=== PATIENT | female | born 1940 | race Caucasian/White ===

== ENCOUNTER 2018-08-22 22:28 | Emergency (ER) | payer OTHER ==
[2018-08-22 22:40] VITALS: BP 143/71; TEMP 99.9; BMI 36.3
[2018-08-22] MEDS ORDERED: DECADRON 4 MG/ML SDV IM STA (23:00)
[2018-08-22] MEDS ORDERED: TYLENOL PO STA (23:00)
--- NOTE | 2018-08-22 23:21 | ED.PDOC ---
General ED Provider: Dr. SHAHID RETANA Chief Complaint: Earache Stated Complaint: Patient is a 78 year old female who comes to the ER with left ear pain that started afew days ago, called PCP who prescribed Augmenting which she has been taking for the past few days. states that the pain is worse. Cannot take narcotics. Time Seen by Physician: 23:19 Mode of Arrival: Walk-In Information Source: Patient Exam Limitations: No limitations Primary Care Provider: ROSE PERERA Nursing and Triage Documentation Reviewed and Agree: Yes Does patient meet sepsis criteria?: No System Inflammatory Response Syndrome: Not Applicable Sepsis Protocol: For patient's 13 years and over: Temp is 96.8 and below OR 101 and greater Pulse >90 BPM Resp >20/minute Acutely Altered Mental Status Are patient's symptoms suggestive of a new infection, such as: -Pneumonia -Skin, Soft Tissue -Endocarditis -UTI -Bone, Joint Infection -Implantable Device -Acute Abdominal Infection -Wound Infection -Meningitis -Blood Stream Catheter Infection -Unknown Review of Systems - Review Of Systems Constitutional: Reports: No symptoms Eyes: Reports: No symptoms Ears, Nose, Mouth, Throat: Reports: Ear pain, Mouth pain Respiratory: Reports: No symptoms Cardiac: Reports: No symptoms GI: Reports: No symptoms : Reports: No symptoms Musculoskeletal: Reports: No symptoms Skin: Reports: No symptoms Neurological: Reports: No symptoms Endocrine: Reports: No symptoms Hematologic/Lymphatic: Reports: No symptoms All Other Systems: Reviewed and Negative Past Medical History - Past Medical History Previously Healthy: No Endocrine: Reports: DM 2, Dyslipidemia Cardiovascular: Reports: Hypertension Respiratory: Reports: None Hematological: Reports: Anemia Gastrointestinal: Reports: None Genitourinary: Reports: CKD Neuro/Psych: Reports: Anxiety Musculoskeletal: Reports: Arthritis Cancer: Reports: None Last Menstrual Period: menopausal - Surgical History General Surgical History: Reports: (x3), Cholecystectomy - Family History Family History: Reports: None - Social History Smoking Status: Former smoker Hx Substance Use: No Alcohol Screening: None - Immunizations Tetanus Shot up to Date: No (unsure) Physical Exam - Physical Exam Appearance: Ill-appearing Ill-appearing: Mild Pain Distress: Moderate Eyes: YAJAIRA, EOMI, Conjunctiva clear ENT: Ears normal, Nose normal, Oropharynx normal Neck: Supple Respiratory: Airway patent, Breath sounds clear, Breath sounds equal, Respirations nonlabored Cardiovascular: RRR, Pulses normal, No rub, No murmur GI/: Soft, Nontender, No masses, Bowel sounds normal, No Organomegaly Musculoskeletal: Normal strength, ROM intact, No edema, No calf tenderness Skin: Warm, Dry, Normal color Neurological: Sensation intact, Motor intact, Reflexes intact, Cranial nerves intact, Alert, Oriented Psychiatric: Anxious Critical Care Note - Critical Care Note Total Time (mins): 0 Course - Course Orders, Labs, Meds: Orders Category Date Time Status MOLECULAR GROUP A STREP Stat LAB 08/22/18 22:57 Ordered Acetaminophen [Tylenol] MEDS 08/22/18 23:00 Discontinued 1,000 mg PO ONCE STA Dexamethasone 4 mg/ml Inj [Decadron 4 mg/ml Sdv] MEDS 08/22/18 23:00 Discontinued 8 mg IM ONCE STA Medications Discontinued Medications Generic Name Dose Route Start Last Admin Trade Name Freq PRN Reason Stop Dose Admin Acetaminophen 1,000 mg 08/22/18 23:00 Tylenol PO 08/22/18 23:01 ONCE STA Dexamethasone Sodium Phosphate 8 mg 08/22/18 23:00 Decadron 4 Mg/Ml Sdv IM 08/22/18 23:01 ONCE STA Vital Signs: Temp Pulse Resp BP Pulse Ox 08/22/18 22:29 99.9 F H 84 20 143/71 H 95 Departure - Departure Time of Disposition: 23:22 Disposition: HOME SELF-CARE Discharge Problem: TMJ (temporomandibular joint syndrome) Instructions: Temporomandibular Disorder (ED) Condition: Stable Pt referred to PMD for follow-up: Yes IPMP verified?: No Additional Instructions: Follow up with PCP in 2 days continue taking Augmentin as prescribed take over the counter Tylenol as needed for pain Allergies/Adverse Reactions: Allergies hydrocodone Adverse Reaction (Verified 08/22/18 22:40) hydromorphone [From Dilaudid] Adverse Reaction (Verified 08/22/18 22:40) IV Pain Medication-unsure what kind Adverse Reaction (Uncoded 08/22/18 22:40) Home Medications: Ambulatory Orders Calcium Carb/Vitamin D3/Vit K1 [Citracal Soft Chew] 1 tab PO DAILY 04/14/14 Cholecalciferol (Vitamin D3) [Vitamin D-3] 2,000 unit PO DAILY 04/14/14 Linagliptin [Tradjenta] 5 mg PO DAILY 04/14/14 Lisinopril 20 mg PO BID 04/14/14 Gabapentin 300 mg PO TID 09/20/15 Nebivolol HCl [Bystolic] 10 mg PO DAILY 09/20/15 Ropinirole HCl [Requip] 0.5 mg PO DAILY 09/20/15 Amlodipine Besylate 10 mg PO DAILY 08/22/18 Amoxicillin/Potassium Clav [Augmentin 875-125 Tablet] 1 tab PO BID 08/22/18 Apixaban [Eliquis] 5 mg PO BID 08/22/18 Atorvastatin Calcium [Lipitor] 5 mg PO BEDTIME 08/22/18 Disposition Discussed With: Patient
== END 2018-08-22 23:50 | disposition home or self-care (01) ==
LOC: ED 22:28
DX: H92.02 Otalgia, left ear (principal); K13.79 Other lesions of oral mucosa; M26.609 Unspecified temporomandibular joint disorder, unspecified side
CPT/HCPCS: 87651; 96372; 99283

== ENCOUNTER 2020-07-11 10:02 | Inpatient (IN) ==
[2020-07-11] MEDS ORDERED: SODIUM CHLORIDE 1,000 ML IV STA (10:19)
--- NOTE | 2020-07-11 10:35 | ED.PDOC ---
General ED Provider: Dr. YADY AWAD MD Chief Complaint: Dizziness Stated Complaint: persistent dizziness x several days. pt is [place] virus + and has 3 more days of quarantine remaining. Time Seen by Provider: 07/11/20 10:05 Mode of Arrival: Ambulance Information Source: Patient and EMT Exam Limitations: No limitations Primary Care Provider: ROSE PERERA Nursing and Triage Documentation Reviewed and Agree: Yes Does patient meet sepsis criteria?: No If yes, has appropriate treatment been initiated?: Yes System Inflammatory Response Syndrome: Not Applicable Sepsis Protocol: For patient's 13 years and over: Temp is 96.8 and below OR 101 and greater Pulse >90 BPM Resp >20/minute Acutely Altered Mental Status Are patient's symptoms suggestive of a new infection, such as: -Pneumonia -Skin, Soft Tissue -Endocarditis -UTI -Bone, Joint Infection -Implantable Device -Acute Abdominal Infection -Wound Infection -Meningitis -Blood Stream Catheter Infection -Unknown Neurological Complaint Exam Weakness Complaint/Exam Duration: 1 week Symptoms Are: Still present Review of Systems Review Of Systems Constitutional: Reports Weakness Eyes: Reports No symptoms Ears, Nose, Mouth, Throat: Reports No symptoms Respiratory: Reports No symptoms Cardiac: Reports No symptoms GI: Reports No symptoms : Reports No symptoms Musculoskeletal: Reports No symptoms Skin: Reports No symptoms Neurological: Reports No symptoms Endocrine: Reports No symptoms Hematologic/Lymphatic: Reports No symptoms All Other Systems: Reviewed and Negative PFSH Female Reproductive History Menstrual Hx Hysterectomy: No Hx Tubal Ligation: No Physical Exam Physical Exam Appearance: Reports Well-appearing and Obese Ill-appearing: None Pain Distress: None Eyes: Reports YAJAIRA, EOMI and Conjunctiva clear ENT: Reports Ears normal, Nose normal and Oropharynx normal Neck: Supple Respiratory: Reports Airway patent and Breath sounds clear Cardiovascular: Reports RRR, Pulses normal, No rub, No murmur and Irregular rhythm GI/: Reports Soft, Nontender, No masses, Bowel sounds normal and No Organomegaly Musculoskeletal: Reports Normal strength, ROM intact, No edema and No calf t enderness Skin: Reports Warm, Dry and Normal color Neurological: Reports Sensation intact, Motor intact, Reflexes intact, Cranial nerves intact, Alert and Oriented Psychiatric: Reports Affect appropriate and Mood appropriate Interpretation Radiology Interpretation Radiology Interpretation By: Radiologist Exam Interpreted: CXR (mild central vascular congestion) and CT Scan (no acute intracranial abnormality.) EKG Interpretation Time of EKG #1: 10:39 Rate: Normal Rhythm: Other (atrial fibrillation) Ectopy: None [place]: NL ST Segment: Normal Re-Evaluation Re-Evaluation Time of Re-Evaluation: 11:00 Status: Improved Vital Signs Stable: Yes Pain Level: 0 Appearance: NAD Lungs: Clear Skin: Warm and Dry Neuro: Alert and Oriented X3 CV: RRR Critical Care Note Critical Care Note Total Critical Care Time (mins): 0 Course Course Hematology/Chemistry: 07/11/20 10:43 07/11/20 10:43 Orders, Labs, Meds: Lab Review 07/11/20 07/11/20 07/11/20 10:43 10:43 11:10 WBC 3.46 L RBC 3.93 L Hgb 11.5 L Hct 33.5 L MCV 85.2 MCH 29.3 MCHC 34.3 RDW Coeff of Itzel 12.3 Plt Count 175 Immature Gran % (Auto) 2.0 Neut % (Auto) 56.7 Lymph % (Auto) 25.4 Callaway % (Auto) 15.6 H Eos % (Auto) 0.0 Baso % (Auto) 0.3 Neut # (Auto) 2.0 Lymph # (Auto) 0.9 [place] # (Auto) 0.5 Eos # (Auto) 0.0 Baso # (Auto) 0.0 Immature Gran # (Auto) 0.1 Sodium 124.6 L Potassium 4.10 Chloride 96.0 L Carbon Dioxide 21.6 L Anion Gap 11.10 BUN 17.9 H Creatinine 1.03 Estimated GFR (MDRD) 52.00 BUN/Creatinine Ratio 17.37 Glucose 130.5 H Calcium 8.81 Total Bilirubin 0.67 AST 24.3 ALT 25.2 Alkaline Phosphatase 59.9 Troponin I < 0.012 Total Protein 6.53 Albumin 3.76 Globulin 2.77 Albumin/Globulin Ratio 1.35 Urine Color Yellow Urine Clarity Clear Urine pH 7.0 Ur Specific Morrill 1.015 Urine Protein Negative Urine Glucose (UA) Negative Urine Ketones Negative Urine Blood Negative Urine Nitrite Negative Urine Bilirubin Negative Urine Urobilinogen 0.2 Ur Leukocyte Esterase Negative Orders Category Date Time Status EKG-(ED ONLY) Stat CARDIO 07/11/20 10:19 Completed ED IV/MEDIPORT/POWERPORT .ONCE EMERGENCY 07/11/20 10:19 Active CBC W/ AUTO DIFF Stat LAB 07/11/20 10:43 Completed COMPREHENSIVE METABOLIC PANEL Stat LAB 07/11/20 10:43 Completed TROPONIN I Stat LAB 07/11/20 10:43 Completed URINALYSIS C & S IF INDICATED Stat LAB 07/11/20 11:10 Completed 0.9 % Sodium Chloride [Saline Flush] MEDS 07/11/20 10:19 Active 1 syr IVF PRN PRN Sodium Chloride 0.9% [Sodium Chloride] 1,000 ml MEDS 07/11/20 10:19 Active IV 125 mls/hr CHEST, 1V AP ONLY Stat RADS 07/11/20 10:[address] HEAD W/O CONTRAST Stat RADS 07/11/20 10:19 Completed Medications Generic Name Dose Route Start Last Admin Trade Name Freq PRN Reason Stop Dose Admin Sodium Chloride 1,000 mls @ 125 mls/hr 07/11/20 10:19 07/11/20 11:16 Sodium Chloride IV 07/11/20 18:18 125 mls/hr .Q8H STA Administration Sodium Chloride 1 syr 07/11/20 10:19 0.9% Sodium Chloride 10 Ml Disp.Syrin IVF PRN PRN To flush IV Vital Signs: Temp Pulse Resp BP Pulse Ox 07/11/20 10:03 97.7 F 59 L 16 183/85 H 96 Discharge Plan Discharge Patient Disposition: ADMITTED INPATIENT Discharge Problem: Dehydration with hyponatremia, Weakness generalized Prescriptions: No Action Tradjenta 5 MG tablet 5 mg PO DAILY RF: 0 gabapentin 300 MG capsule 200 mg PO TID RF: 0 hydralazine 25 mg Tablet 25 mg PO TID RF: 0 calcium carbonate [Os-Zohaib] 500 mg calcium (1,250 mg) Tablet 500 mg PO DAILY RF: 0 meclizine 25 mg Tablet 25 mg PO BID RF: 0 polyethylene glycol 3350 17 gram/dose Powder 17 g PO DAILY PRN (Reason: Constipation) RF: 0 hydroxyzine HCl 10 mg Tablet 10 mg PO BID RF: 0 cholecalciferol (vitamin D3) 10 mcg (400 unit) Tablet 10 mcg PO DAILY RF: 0 Fish Oil 1,000 mg Capsule 1 cap PO BID RF: 0 Eliquis 5 MG tablet 5 mg PO BID RF: 0 bumetanide 1 mg Tablet 1 mg PO DAILY PRN (Reason: fluid) RF: 0 losartan 100 mg Tablet 100 mg PO DAILY RF: 0 ED Provider: YADY AWAD Condition: Serious Physician Progress Note: []Pt was d/w Dr Perera: for admission here. See admission orders. Hyponatremia. Generalized weakness.
[2020-07-11 10:49] LABS: BASOPHILS % (AUTO) 0.3 % (0.0-3.0); HEMATOCRIT 33.5 % (37.0-47.0); HEMOGLOBIN 11.5 g/dl (12.0-16.0); IMMATURE GRANULOCYTE # (AUTO) 0.1 (0.0-1.0); LYMPHOCYTES # (AUTO) 0.9 K/uL (0.60-3.4); LYMPHOCYTES % (AUTO) 25.4 (10.0-50.0); MEAN CORPUSCULAR HEMOGLOBIN 29.3 pg (27.0-31.0); MEAN CORPUSCULAR HGB CONC 34.3 (31.8-35.4); MEAN CORPUSCULAR VOLUME 85.2 fl (81.0-99.0); MONOCYTES # (AUTO) 0.5 K/uL (0.4-2.0); MONOCYTES % (AUTO) 15.6 (0-10); NEUTROPHILS % (AUTO) 56.7 % (42.2-75.2); PLATELET COUNT 175 10^3/uL (140-440); RDW COEFFICIENT OF VARIATION 12.3 % (11.6-14.8); RED BLOOD COUNT 3.93 10^6/ul (4.20-5.40); WHITE BLOOD COUNT 3.46 K/ul (4.6-10.2)
[2020-07-11 11:00] LABS: ALANINE AMINOTRANSFERASE 25.2 U/L (0-35); ALBUMIN 3.76 g/dL (3.5-5.0); ALKALINE PHOSPHATASE 59.9 U/L (53-141); ASPARTATE AMINO TRANSFERASE 24.3 U/L (14-36); BILIRUBIN,TOTAL 0.67 mg/dL (0.2-1.3); BLOOD UREA NITROGEN 17.9 mg/dL (7-17); CALCIUM 8.81 mg/dL (8.4-10.2); CARBON DIOXIDE 21.6 mmol/L (22-30.0); CREATININE 1.03 mg/dL (0.60-1.30); GLUCOSE 130.5 mg/dL (74-106); SODIUM 124.6 mmol/L (134.5-145); TOTAL PROTEIN 6.53 g/dL (6.3-8.2)
[2020-07-11 11:15] LABS: TROPONIN I < 0.012 ng/ml (0.0000-0.120)
[2020-07-11 11:26] LABS: BILIRUBIN,URINE Negative (NEGATIVE); CLARITY,URINE Clear (CLEAR); COLOR,URINE Yellow (YELLOW); GLUCOSE, URINE (UA) Negative (NEGATIVE); KETONES,URINE Negative (NEGATIVE); LEUKOCYTE ESTERASE ,URINE Negative (NEGATIVE); NITRITE,URINE Negative (NEGATIVE); PROTEIN,URINE Negative (NEGATIVE); URINE, BLOOD Negative (NEGATIVE); UROBILINOGEN,URINE 0.2 (0.2)
--- NOTE | 2020-07-11 11:32 | DI ---
EXAM: Frontal chest HISTORY: Weakness and dizziness FINDINGS: Compared to 08/25/2011. Cardiomegaly is again noted. Questionable subtle central vascula r congestion. No consolidations are identified. There is no visible pleural fluid or pneumothorax. IMPRESSION: 1. Cardiomegaly and possible subtle central vascular congestion.
--- NOTE | 2020-07-11 11:42 | CT ---
EXAM: CT BRAIN HISTORY: Dizziness TECHNIQUE: CT brain without intravenous contrast. 5-mm axial sections with Reformations. COMPARISON: 07/31/2019 FINDINGS: The brain was unremarkable for age without evidence of hemorrhage or large vessel distribution recen t ischemic infarction. There is no suggestion of acute hydrocephalus or subdural fluid collection. No mass or mass effect. Cranium has no acute finding. Mastoid processes are aerated. The visualized paranasal sinuses are clear. IMPRESSION: No acute intracranial process. All CT scans are performed using dose optimization techniques as appropriate to the performed exam an d include at least one of the following: Automated exposure control, adjustment of the mA and/or kV according t o size, and the use of iterative reconstruction technique.
[2020-07-11] MEDS ORDERED: BUMEX PO PRN (12:57)
[2020-07-11] MEDS ORDERED: POLYETHYLENE GLYCOL PO PRN (13:02)
[2020-07-11] MEDS ORDERED: MIRALAX PO PRN (13:33)
[2020-07-11 14:30] VITALS: BMI 32.5
[2020-07-11] MEDS: NEURONTIN PO SCH ×2 (14:32→21:14)
[2020-07-11] MEDS: APRESOLINE PO SCH ×2 (14:32→21:14)
[2020-07-11] MEDS ORDERED: NEURONTIN PO SCH (15:00)
[2020-07-11] MEDS ORDERED: HYDROXYZINE HCL 10 MG PO SCH (21:00)
[2020-07-11] MEDS ORDERED: NON-FORMULARY MEDICATION (Omega-3 Fatty Acids-Vitamin E 1,000 mg Capsule) PO SCH (21:00)
[2020-07-11] MEDS: ATARAX PO SCH (21:13)
[2020-07-11] MEDS: OMEGA-3 FISH OIL PO SCH (21:13)
[2020-07-11] MEDS: ANTIVERT PO SCH (21:14)
[2020-07-11] MEDS: ELIQUIS PO SCH (21:14)
[2020-07-12 05:29] LABS: BASOPHILS % (AUTO) 0.2 % (0.0-3.0); HEMATOCRIT 32.2 % (37.0-47.0); HEMOGLOBIN 11.1 g/dl (12.0-16.0); IMMATURE GRANULOCYTE # (AUTO) 0.1 (0.0-1.0); IMMATURE GRANULOCYTE % (AUTO) 1.9 % (0.0-5.0); LYMPHOCYTES # (AUTO) 1.3 K/uL (0.60-3.4); MEAN CORPUSCULAR HEMOGLOBIN 29.2 pg (27.0-31.0); MEAN CORPUSCULAR HGB CONC 34.5 (31.8-35.4); MEAN CORPUSCULAR VOLUME 84.7 fl (81.0-99.0); MONOCYTES # (AUTO) 0.7 K/uL (0.4-2.0); MONOCYTES % (AUTO) 16.3 (0-10); NEUTROPHILS # (AUTO) 2.1 K/ul (2.0-6.9); NEUTROPHILS % (AUTO) 50.6 % (42.2-75.2); PLATELET COUNT 192 10^3/uL (140-440); RDW COEFFICIENT OF VARIATION 12.5 % (11.6-14.8); WHITE BLOOD COUNT 4.16 K/ul (4.6-10.2)
[2020-07-12 05:38] LABS: ALANINE AMINOTRANSFERASE 18.6 U/L (0-35); ALBUMIN 3.34 g/dL (3.5-5.0); ALKALINE PHOSPHATASE 53.8 U/L (53-141); ASPARTATE AMINO TRANSFERASE 23.2 U/L (14-36); BILIRUBIN,TOTAL 0.5 mg/dL (0.2-1.3); BLOOD UREA NITROGEN 25.5 mg/dL (7-17); CALCIUM 8.5 mg/dL (8.4-10.2); CARBON DIOXIDE 20.6 mmol/L (22-30.0); CHLORIDE 98.9 mmol/L (98-107); CREATININE 1.55 mg/dL (0.60-1.30); GLUCOSE 110.4 mg/dL (74-106); POTASSIUM 4.44 mmol/L (3.5-5.1); SODIUM 125.7 mmol/L (134.5-145); TOTAL PROTEIN 6.07 g/dL (6.3-8.2)
[2020-07-12] MEDS: NEURONTIN PO SCH ×3 (08:31→20:13)
[2020-07-12] MEDS: OMEGA-3 FISH OIL PO SCH ×2 (08:32→20:12)
[2020-07-12] MEDS: COZAAR PO SCH (08:32)
[2020-07-12] MEDS: TRADJENTA PO SCH (08:32)
[2020-07-12] MEDS: ANTIVERT PO SCH ×2 (08:32→20:13)
[2020-07-12] MEDS: ATARAX PO SCH ×2 (08:32→20:13)
[2020-07-12] MEDS: APRESOLINE PO SCH ×2 (08:33→14:29)
[2020-07-12] MEDS: VITAMIN D PO SCH (08:33)
[2020-07-12] MEDS: ELIQUIS PO SCH ×2 (08:34→20:12)
[2020-07-12] MEDS: CALCIUM 500 + VIT D 5 MCG (200 IU) TABLET PO SCH (08:50)
[2020-07-12] MEDS ORDERED: CALCIUM PO SCH (09:00)
[2020-07-12] MEDS ORDERED: CALCIUM CARBONATE 500 MG PO SCH (09:00)
[2020-07-12 17:53] LABS: IRON 23.3 ug/dL (37-170)
[2020-07-13 05:12] LABS: BASOPHILS % (AUTO) 0.2 % (0.0-3.0); EOSINOPHILS # (AUTO) 0.1 K/ul (0.0-0.7); HEMATOCRIT 32.6 % (37.0-47.0); IMMATURE GRANULOCYTE # (AUTO) 0.1 (0.0-1.0); IMMATURE GRANULOCYTE % (AUTO) 1.4 % (0.0-5.0); LYMPHOCYTES # (AUTO) 1.8 K/uL (0.60-3.4); LYMPHOCYTES % (AUTO) 31.9 (10.0-50.0); MEAN CORPUSCULAR HEMOGLOBIN 29.1 pg (27.0-31.0); MEAN CORPUSCULAR HGB CONC 33.7 (31.8-35.4); MEAN CORPUSCULAR VOLUME 86.2 fl (81.0-99.0); MONOCYTES # (AUTO) 0.8 K/uL (0.4-2.0); MONOCYTES % (AUTO) 14.2 (0-10); NEUTROPHILS # (AUTO) 2.8 K/ul (2.0-6.9); NEUTROPHILS % (AUTO) 50.3 % (42.2-75.2); PLATELET COUNT 196 10^3/uL (140-440); RDW COEFFICIENT OF VARIATION 12.6 % (11.6-14.8); RED BLOOD COUNT 3.78 10^6/ul (4.20-5.40); WHITE BLOOD COUNT 5.55 K/ul (4.6-10.2)
[2020-07-13 05:27] LABS: ALANINE AMINOTRANSFERASE 15.3 U/L (0-35); ALBUMIN 3.32 g/dL (3.5-5.0); ALKALINE PHOSPHATASE 52.4 U/L (53-141); ASPARTATE AMINO TRANSFERASE 20.6 U/L (14-36); BILIRUBIN,TOTAL 0.38 mg/dL (0.2-1.3); BLOOD UREA NITROGEN 41.4 mg/dL (7-17); CALCIUM 8.52 mg/dL (8.4-10.2); CARBON DIOXIDE 23.3 mmol/L (22-30.0); CHLORIDE 98.8 mmol/L (98-107); CREATININE 2.21 mg/dL (0.60-1.30); GLUCOSE 111.3 mg/dL (74-106); POTASSIUM 4.53 mmol/L (3.5-5.1); SODIUM 128.5 mmol/L (134.5-145); TOTAL PROTEIN 6.03 g/dL (6.3-8.2)
[2020-07-13] MEDS ORDERED: SODIUM CHLORIDE 250 ML IV ONE (08:06)
[2020-07-13] MEDS: ATARAX PO SCH ×2 (08:15→20:37)
[2020-07-13] MEDS: ANTIVERT PO SCH ×2 (08:15→20:36)
[2020-07-13] MEDS: VITAMIN D PO SCH (08:15)
[2020-07-13] MEDS: COZAAR PO SCH (08:15)
[2020-07-13] MEDS: NEURONTIN PO SCH ×3 (08:16→20:36)
[2020-07-13] MEDS: TRADJENTA PO SCH (08:16)
[2020-07-13] MEDS: OMEGA-3 FISH OIL PO SCH ×2 (08:16→20:37)
[2020-07-13] MEDS: CALCIUM 500 + VIT D 5 MCG (200 IU) TABLET PO SCH (08:16)
[2020-07-13] MEDS ORDERED: SODIUM CHLORIDE 1,000 ML IV SCH (08:30)
[2020-07-13] MEDS: ELIQUIS PO SCH ×2 (08:43→20:37)
[2020-07-13] MEDS: SODIUM CHLORIDE 1,000 ML IV SCH (12:20)
[2020-07-13] MEDS ORDERED: TYLENOL PO STA (12:58)
[2020-07-13 16:24] LABS: BLOOD UREA NITROGEN 37.1 mg/dL (7-17); CALCIUM 8.28 mg/dL (8.4-10.2); CARBON DIOXIDE 22.4 mmol/L (22-30.0); CHLORIDE 102.3 mmol/L (98-107); CREATININE 1.61 mg/dL (0.60-1.30); GLUCOSE 118.4 mg/dL (74-106); POTASSIUM 4.84 mmol/L (3.5-5.1); SODIUM 130.6 mmol/L (134.5-145)
[2020-07-14] MEDS: SODIUM CHLORIDE 1,000 ML IV SCH (00:21)
[2020-07-14 05:13] LABS: BASOPHILS % (AUTO) 0.2 % (0.0-3.0); EOSINOPHILS # (AUTO) 0.1 K/ul (0.0-0.7); EOSINOPHILS % (AUTO) 2.6 % (0.0-7.0); HEMATOCRIT 29.3 % (37.0-47.0); HEMOGLOBIN 9.9 g/dl (12.0-16.0); IMMATURE GRANULOCYTE # (AUTO) 0.1 (0.0-1.0); IMMATURE GRANULOCYTE % (AUTO) 0.9 % (0.0-5.0); LYMPHOCYTES # (AUTO) 1.3 K/uL (0.60-3.4); LYMPHOCYTES % (AUTO) 23.7 (10.0-50.0); MEAN CORPUSCULAR HEMOGLOBIN 29.6 pg (27.0-31.0); MEAN CORPUSCULAR HGB CONC 33.8 (31.8-35.4); MEAN CORPUSCULAR VOLUME 87.5 fl (81.0-99.0); MONOCYTES # (AUTO) 0.8 K/uL (0.4-2.0); MONOCYTES % (AUTO) 15.2 (0-10); NEUTROPHILS # (AUTO) 3.1 K/ul (2.0-6.9); NEUTROPHILS % (AUTO) 57.4 % (42.2-75.2); PLATELET COUNT 175 10^3/uL (140-440); RDW COEFFICIENT OF VARIATION 12.7 % (11.6-14.8); RED BLOOD COUNT 3.35 10^6/ul (4.20-5.40); WHITE BLOOD COUNT 5.41 K/ul (4.6-10.2)
[2020-07-14 05:25] LABS: CALCIUM 8.34 mg/dL (8.4-10.2); CARBON DIOXIDE 20.7 mmol/L (22-30.0); CHLORIDE 105.3 mmol/L (98-107); CREATININE 1.29 mg/dL (0.60-1.30); POTASSIUM 4.71 mmol/L (3.5-5.1); SODIUM 132.2 mmol/L (134.5-145)
[2020-07-14] MEDS: OMEGA-3 FISH OIL PO SCH ×2 (08:52→20:29)
[2020-07-14] MEDS: ELIQUIS PO SCH ×2 (08:52→20:30)
[2020-07-14] MEDS: CALCIUM 500 + VIT D 5 MCG (200 IU) TABLET PO SCH (08:52)
[2020-07-14] MEDS: VITAMIN D PO SCH (08:52)
[2020-07-14] MEDS: COZAAR PO SCH (08:52)
[2020-07-14] MEDS: NEURONTIN PO SCH ×3 (08:52→20:29)
[2020-07-14] MEDS: ATARAX PO SCH ×2 (08:52→20:29)
[2020-07-14] MEDS: ANTIVERT PO SCH ×2 (08:52→20:29)
[2020-07-14] MEDS: TRADJENTA PO SCH (08:52)
[2020-07-14 11:08] LABS: OCCULT BLOOD SAMPLE 1 POSITIVE (NEGATIVE); OCCULT BLOOD SAMPLE 2 NO SPECIMEN RECEIVED (NEGATIVE); OCCULT BLOOD SAMPLE 3 NO SPECIMEN RECEIVED (NEGATIVE)
[2020-07-14 21:36] VITALS: TEMP 98.8
[2020-07-14 22:37] LABS: OCCULT BLOOD SAMPLE 1 POSITIVE (NEGATIVE)
[2020-07-15 05:14] LABS: BASOPHILS % (AUTO) 0.1 % (0.0-3.0); EOSINOPHILS # (AUTO) 0.2 K/ul (0.0-0.7); EOSINOPHILS % (AUTO) 2.2 % (0.0-7.0); HEMATOCRIT 30.2 % (37.0-47.0); HEMOGLOBIN 10.2 g/dl (12.0-16.0); IMMATURE GRANULOCYTE # (AUTO) 0.1 (0.0-1.0); IMMATURE GRANULOCYTE % (AUTO) 0.7 % (0.0-5.0); LYMPHOCYTES # (AUTO) 1.8 K/uL (0.60-3.4); LYMPHOCYTES % (AUTO) 26.1 (10.0-50.0); MEAN CORPUSCULAR HEMOGLOBIN 29.5 pg (27.0-31.0); MEAN CORPUSCULAR HGB CONC 33.8 (31.8-35.4); MEAN CORPUSCULAR VOLUME 87.3 fl (81.0-99.0); MONOCYTES # (AUTO) 0.9 K/uL (0.4-2.0); MONOCYTES % (AUTO) 13.4 (0-10); NEUTROPHILS # (AUTO) 3.9 K/ul (2.0-6.9); NEUTROPHILS % (AUTO) 57.5 % (42.2-75.2); PLATELET COUNT 193 10^3/uL (140-440); RDW COEFFICIENT OF VARIATION 12.7 % (11.6-14.8); RED BLOOD COUNT 3.46 10^6/ul (4.20-5.40); WHITE BLOOD COUNT 6.78 K/ul (4.6-10.2)
[2020-07-15 05:27] LABS: ALANINE AMINOTRANSFERASE 15.4 U/L (0-35); ALBUMIN 3.39 g/dL (3.5-5.0); ALKALINE PHOSPHATASE 57.4 U/L (53-141); ASPARTATE AMINO TRANSFERASE 20.3 U/L (14-36); BILIRUBIN,TOTAL 0.53 mg/dL (0.2-1.3); BLOOD UREA NITROGEN 20.5 mg/dL (7-17); CALCIUM 8.81 mg/dL (8.4-10.2); CARBON DIOXIDE 21.4 mmol/L (22-30.0); CHLORIDE 104.8 mmol/L (98-107); CREATININE 1.22 mg/dL (0.60-1.30); GLUCOSE 106.9 mg/dL (74-106); POTASSIUM 4.79 mmol/L (3.5-5.1); SODIUM 131.7 mmol/L (134.5-145); TOTAL PROTEIN 6.26 g/dL (6.3-8.2)
[2020-07-15 05:42] VITALS: BP 130/63
[2020-07-15 07:47] LABS: OCCULT BLOOD SAMPLE 2 NO SPECIMEN RECEIVED (NEGATIVE); OCCULT BLOOD SAMPLE 3 NO SPECIMEN RECEIVED (NEGATIVE)
[2020-07-15] MEDS: TRADJENTA PO SCH (09:26)
[2020-07-15] MEDS: VITAMIN D PO SCH (09:27)
[2020-07-15] MEDS: NEURONTIN PO SCH (09:28)
[2020-07-15] MEDS: ANTIVERT PO SCH (09:28)
[2020-07-15] MEDS: OMEGA-3 FISH OIL PO SCH (09:28)
[2020-07-15] MEDS: COZAAR PO SCH (09:28)
[2020-07-15] MEDS: CALCIUM 500 + VIT D 5 MCG (200 IU) TABLET PO SCH (09:28)
[2020-07-15] MEDS: ATARAX PO SCH (09:28)
[2020-07-15] MEDS: ELIQUIS PO SCH (09:29)
--- NOTE | 2020-08-13 13:57 | HP ---
DISCUSSION: This is a 80 year old lady with history of hypertension and recent cervical fracture who presented to the emergency department for dizziness for several days. She has a history of COVID 19 virus and has a few more days of quarantine remaining. She was seen by Dr. Longo in the emergency department. She was found to have significant hyponatremia with subsequent weakness as well as elevated blood pressure. Because of the hyponatremia and weakness Dr. Longo felt that she needed to be admitted therefore she was admitted to my services for evaluation and treatment of such. PAST MEDICAL HISTORY: MEDICATIONS: Tradjenta Gabapentin Hydralazine Meclizine Hydroxyzine Fish oil Eliquis Bumex Losartan ALLERGIES: No known drug allergies. PAST MEDICAL HISTORY: History of hypertension Diabetes type 2 History of chronic low back pain History of cervical fracture History of atrial fibrillation SOCIAL HISTORY: Previous smoker. No alcohol or illicit drug use is noted. FAMILY HISTORY: Reviewed and thought not to be pertinent to discussion. REVIEW OF SYSTEMS: No headaches, visual changes, tinnitus, chest pain, shortness of breath, hemoptysis, abdominal pain, blood in the stool, urinary symptoms or seizures. She has had intermittent dizziness without vertigo. PHYSICAL EXAMINATION: V/S: Temperature 97.7, pulse 59, respiratory rate 16, blood pressure 193/85. HEENT: Pupils are round. NECK: Supple. CHEST: Clear. CARDIOVASCULAR: Regular rate and rhythm. ABDOMEN: Soft, nontender. EXTREMITIES: Distal extremities without cyanosis or edema. ASSESSMENT: 1. Generalized weakness 2. Hyponatremia 3. Atrial fibrillation PLAN: 1. She appears to have some evidence of fluid overload, we are going to go ahead and increase her diuresis. We are going to monitor her sodium. Please see orders. MTDD
--- NOTE | 2020-08-13 13:58 | DS ---
PRINCIPAL DIAGNOSIS: 1. Global weakness 2. Hyponatremia 3. Hypertension 4. Atrial fibrillation DISCUSSION: This is a 80 year old lady with history of hypertension and recent cervical fracture who presented to the emergency department for dizziness for several days. She has a history of COVID 19 virus and has a few more days of quarantine remaining. She was seen by Dr. Longo in the emergency department. She was found to have significant hyponatremia with subsequent weakness as well as elevated blood pressure. Because of the hyponatremia and weakness Dr. Longo felt that she needed to be admitted therefore she was admitted to my services for evaluation and treatment of such. CLINICAL COURSE: With diuresis her weakness seemed to improve. Her blood pressure certainly improved. Her hyponatremia improved and she did well. Her dizziness improved during her hospital. She really had no evidence of active COVID 19 in fact she was without fever or cough and at this point we felt that the patient was stable for discharge to followup with me in the office. We will have her electrolyte repeated. ISABELLA
== END 2020-07-15 13:30 | disposition home or self-care (01) | DRG 948 ==
LOC: ED 10:02 → SCU 12:43 → MEDSURG A 07-14 09:42 → EDSTATUS 07-15 10:02
PROVIDERS: ADMIT Family Medicine; ATTEND Family Medicine
DX: E87.1 Hypo-osmolality and hyponatremia; E86.0 Dehydration; R53.1 Weakness; I48.91 Unspecified atrial fibrillation